=== PATIENT | male | born 1955 | race Caucasian/White ===

== ENCOUNTER 2016-07-31 19:29 | Emergency (ER) | payer OTHER ==
[~2016-07-31 19:29] MED LIST: ASPIRIN81 M2 PO; CARVEDILOL6.25 MG PO; CLEOCIN150 M1 PO; EFFIENT10 MG PO; GLUCOTROL PO; HYDROCODON-ACE1 EAC7 PO; KEFLEX PO; LANTUS100 UNITS/ SUBQ; LIPITOR20 MG PO; LISINOPRIL20 MG PO; METFORMIN HCL500 M1 PO
[2016-07-31] MEDS ORDERED: LANTUS100 U/ML SUBQ (19:45)
[2016-07-31] MEDS ORDERED: NOVOLOG100 UNITS/ (19:45)
== END 2016-07-31 20:56 | disposition home or self-care (01) ==
LOC: SED 19:29
DX: E11.65 Type 2 diabetes mellitus with hyperglycemia (principal); B35.3 Tinea pedis; R20.2 Paresthesia of skin; I10 Essential (primary) hypertension; E78.5 Hyperlipidemia, unspecified; Z88.0 Allergy status to penicillin; Z79.899 Other long term (current) drug therapy
CPT/HCPCS: 82947; 99284